=== PATIENT | female | born 1950 | race African-American/Black ===

== ENCOUNTER → 2016-05-13 | Outpatient (CLI) | payer MEDICARE ==
[2014-08-19 17:00] VITALS: BP 161/68
[~2016-05-13] MED LIST: ASPI81TA2 PO; CRESTOR5 MG PO; FERR325T58 PO; LOSA25TA4 PO; MULT-658 PO; NIFE30TA17 PO
--- NOTE | 2016-05-13 14:09 | KCIC ---
PQRS STATEMENT One or more of the following individualized dose reduction techniques were utilized for this study: 1.Automated exposure control 2.Adjustment of the mA and/or kV according to patient size 3.Use of iterative reconstruction technique CT maxillofacial Indication: Reason For Study Reason: SEVERE LEFT ETHMOID SINUS PRESSURE X 1 MONTH / Spl. Instructions: / History: Technique: multiple contiguous axial images were obtained through the facial bones. Coronal and sagittal reformations were created. Findings:Soft tissues are within normal limits. No facial fractures are identified. The paranasal sinuses and mastoid air cells are clear. Ostiomeatal units are patent, as are the frontal ethmoid recesses. Temporomandibular joints are intact. The globes and orbits are within normal limits. Parapharyngeal soft tissues are within normal limits. Impression: Negative CT maxillofacial study. Electronically signed by: Brian Trevino (May 13, 2016 14:08:37)
== END | disposition home or self-care (01) ==
LOC: KCIC CT 13:15
PROVIDERS: ATTEND Nurse Practitioner
DX: J32.2 Chronic ethmoidal sinusitis (principal)
CPT/HCPCS: 70486

== ENCOUNTER → 2016-11-30 | Outpatient (CLI) | payer MEDICARE ==
[2014-08-19 17:00] VITALS: BP 161/68
[~2016-11-30] MED LIST changes: +ASPI-630 PO; -ASPI81TA2 PO; +GADOBUTROL 7.5 MMOL/7.5 ML VIAL IV ONE
--- NOTE | 2016-11-30 12:53 | KCIC ---
EXAMINATION: Magnetic resonance imaging (MRI) of the brain and brainstem without contrast HISTORY: Bilateral tinnitus TECHNIQUE: Multiplanar multi-weighted MRI of the brain and brainstem was performed without intravenous contrast using the internal auditory canal protocol. This included sequences detailing the internal auditory canals and posterior fossa COMPARISON: CT maxillofacial May 13, 2016 FINDINGS: The cerebellopontine angles are normal, with no evidence of extra-axial mass or aneurysm. The VII/VIII nerve complexes appear normal. There are no areas of abnormal contrast enhancement. The upper cervical spinal cord and spine are normal. The scalp and calvarium are normal. The superior sagittal sinus demonstrates normal venous flow. The corpus callosum is normal in shape and signal intensity. The posterior fossa is unremarkable. The pituitary and sella are normal. There are scattered punctate foci of T2/FLAIR signal hyperintensity in the periventricular and subcortical white matter compatible with mild chronic small vessel ischemic changes. Brainstem is normal in appearance. Diffusion weighted images reveal no hyperintensities to suggest acute cerebral infarction. The susceptibility weighted sequences reveal no evidence of acute or chronic hemorrhage. The ventricles are normal in size and position without evidence of hydrocephalus. There is a cavum septum pellucidum. The paranasal sinuses are normal. The visualized portions of the mastoids are unremarkable. Orbits are normal with exception of bilateral lens replacement. Normal flow voids are demonstrated in the carotid arteries and basilar artery. IMPRESSION: No lesions in the posterior fossa, internal auditory canals, or temporal bones to explain the patient's symptoms. Electronically signed by: Kristine Ravi MD (11/30/2016 12:49 PM) [id number]
== END | disposition home or self-care (01) ==
LOC: KCIC MRI 10:51
PROVIDERS: ATTEND Otolaryngology
DX: H93.13 Tinnitus, bilateral (principal)
CPT/HCPCS: 70551; 82565

== ENCOUNTER 2017-07-05 09:16 | Day surgery (SDC) | payer MEDICARE ==
[~2017-07-05 09:16] MED LIST changes: -ASPI-630 PO; -CRESTOR5 MG PO; -FERR325T58 PO; -GADOBUTROL 7.5 MMOL/7.5 ML VIAL IV ONE; +IV RINGERS,LACTATED 1000ML 1,000 ML IV; +LIDOCAINE 1% PF 2 ML VIAL. ID; -LOSA25TA4 PO; -MULT-658 PO; -NIFE30TA17 PO; +ONDANSETRON PF 4 MG/2 ML VIAL. IV; +PROCHLORPERAZINE 10 MG/2 ML VIAL. IV; +fentaNYL PF VIAL 100 MCG/2 ML VIAL IV
[2017-07-05] MEDS ORDERED: NEOMY/BACITR/POLYMYXIN OINT PACKET. TP (09:30)
[2017-07-05] MEDS ORDERED: fentaNYL PF VIAL 100 MCG/2 ML VIAL (09:31)
[2017-07-05] MEDS ORDERED: MIDAZOLAM HCL/PF 2 MG/2 ML VIAL. (09:31)
[2017-07-05] MEDS ORDERED: ROCURONIUM 50 MG/5 ML VIAL. (09:32)
[2017-07-05] MEDS ORDERED: NEOSTIGMINE METHYLSULFATE 5 MG/5 ML SYRINGE. (09:32)
[2017-07-05] MEDS ORDERED: GLYCOPYRROLATE 1 MG/5 ML VIAL. (09:32)
[2017-07-05] MEDS ORDERED: PROPOFOL 20 ML IV (09:33)
[2017-07-05] MEDS ORDERED: PHENYLEPHRINE in 0.9% NACL PF 1 MG/10 ML SYRINGE. IV (09:38)
[2017-07-05] MEDS: IV RINGERS,LACTATED 1000ML 1,000 ML IV ×4 (09:56→13:01)
[2017-07-05] MEDS: IV NORMAL SALINE 1000ML BAG 1,000 ML IV (09:56)
[2017-07-05] MEDS ORDERED: ONDANSETRON PF 4 MG/2 ML VIAL. (10:49)
[2017-07-05] MEDS: HEPARIN SODIUM 5,000 UNIT in IV NORMAL SALINE 500ML BAG 500 ML IRR (11:07)
[2017-07-05] MEDS: BUPIVACAINE-EPI 0.25%-1:200000 50 ML VIAL. (12:10)
[2017-07-05 12:12] LABS: POC GLUCOSE 92 mg/dL (70-99)
[2017-07-05] MEDS: PROCHLORPERAZINE 10 MG/2 ML VIAL. IV (12:52)
[2017-07-05] MEDS: fentaNYL PF VIAL 100 MCG/2 ML VIAL IV (12:53)
[2017-07-05] MEDS: HYDROcodone/APAP 5/325MG 1 TAB TABLET PO (13:36)
== END 2017-07-05 15:05 | disposition home or self-care (01) ==
LOC: SURG 09:16
DX: I12.0 Hypertensive chronic kidney disease with stage 5 chronic kidney disease or end stage renal disease (principal); E11.22 Type 2 diabetes mellitus with diabetic chronic kidney disease; N18.6 End stage renal disease; Z99.2 Dependence on renal dialysis; Z90.710 Acquired absence of both cervix and uterus; K66.0 Peritoneal adhesions (postprocedural) (postinfection); Z98.42 Cataract extraction status, left eye; Z98.41 Cataract extraction status, right eye; E78.00 Pure hypercholesterolemia, unspecified; Z90.722 Acquired absence of ovaries, bilateral; Z90.79 Acquired absence of other genital organ(s); M19.90 Unspecified osteoarthritis, unspecified site; Z98.890 Other specified postprocedural states; Z96.643 Presence of artificial hip joint, bilateral; Z96.652 Presence of left artificial knee joint; E21.3 Hyperparathyroidism, unspecified; D64.9 Anemia, unspecified; Z79.82 Long term (current) use of aspirin; E78.5 Hyperlipidemia, unspecified; Z80.0 Family history of malignant neoplasm of digestive organs; Z84.1 Family history of disorders of kidney and ureter; Z87.891 Personal history of nicotine dependence; Z88.2 Allergy status to sulfonamides; Z88.8 Allergy status to other drugs, medicaments and biological substances; Z88.5 Allergy status to narcotic agent; Z79.84 Long term (current) use of oral hypoglycemic drugs
CPT/HCPCS: 49324; 82962; A7015; J0690; J0780; J1644; J2250; J2370; J2405; J2704; J2710; J3010; J3490; J7040